=== PATIENT | female | born 1980 | race Caucasian/White ===

== ENCOUNTER 2023-01-15 18:50 | Emergency (ER) | payer BC, SELFPAY ==
[2023-01-15 19:15] VITALS: BP 107/67; PULSE 81; RESP 16; TEMP 36.7; O2SAT 97; BMI 30.5
--- NOTE | 2023-01-15 19:36 | ED.GENADULT ---
HPI - General Adult General Date Seen: 01/15/23 Chief complaint: Weakness Stated complaint: Sore throat fever Body Pain Urine Issues Time Seen by Provider: 01/15/23 19:09 Source: patient Mode of arrival: ambulatory Limitations: no limitations History of Present Illness HPI narrative: Patient is a 42-year-old here for evaluation of 3 days of fever, myalgias, fatigue. She also says that she is not urinating a lot at a time, is having some frequency. She does not have dysuria, no hematuria. She does feel that her urine smells bad. No abdominal or flank pain. No vomiting or diarrhea. Her daughter is sick with a febrile illness as well. They did not do a COVID test at home. She has not had significant cough, no chest pain or shortness of breath. She says she feels better today than she did the past couple of days but still wanted to get checked out. Related Data Home Medications Medication Instructions Recorded Confirmed No Known Home Medications 01/15/23 01/15/23 Allergies Allergy/AdvReac Type Severity Reaction Status Date / Time Latex, Natural Rubber Allergy Severe Anaphylaxis Verified 01/15/23 19:20 Review of Systems Status of ROS: Reports: 6 or more systems reviewed and unremarkable except as noted in History and below [facility] Medical History No significant past medical history Surgical History History of colposcopy ?Z98.890 - Other specified postprocedural states (ICD-10) Social History Smoking Status: Current every day smoker What tobacco products do you use: cigarettes Smoking packs per day: 0.5 Smoking cigarettes per day: 10.0 Years smoked: 25 Smoking pack-years: 12.50 Do you use any of these nicotine containing products: None Second hand tobacco smoke exposure: No How often do you have a drink containing alcohol: 2-3 times a week AUDIT-C Alcohol total score: 3 Non-prescribed substance use: denies use service: No Exam Narrative: Exam Narrative: Vital signs as noted above. In general, an alert, well-appearing patient. Head: Normocephalic, atraumatic. Eyes: Pupils are equal reactive. Extraocular movements are full. Conjunctivae are normal. ENT: Mucous membranes are moist. Throat is normal. Neck: Supple without lymphadenopathy. Heart: Regular rate and rhythm. No murmur or rub. Lungs: Clear bilaterally. No increased work of breathing, crackles or wheezes. Abdomen: Soft and nontender. No organomegaly. No CVA tenderness. Extremities: Well perfused. No edema. No calf tenderness. Pulses intact. Neurologic: Patient is alert and oriented to person and place. Speech is fluent. Face is symmetric. Moves all extremities equally. Affect: Normal. Skin: Warm and dry. Well perfused. Const: Vital Signs, click to edit/add: Vital Signs - 24 hr 01/15/23 19:15 01/15/23 20:23 01/15/23 20:28 Temperature 98.1 F 98.4 F 98.4 F Pulse Rate [Pulse Oximeter] 81 79 79 Respiratory Rate 16 16 16 Blood Pressure [Le ft Upper Arm] 107/67 110/74 110/74 Pulse Oximetry 97 97 Oxygen Delivery Me thod Room Air Room Air Documenting provider has reviewed patient's vital signs: yes Course Course Hospital Course: COVID, flu, RSV and strep test were obtained. Urinalysis also pending. Her daughter strep test was positive but hers is negative, viral testing is negative as well. Urinalysis is suggestive of UTI with positive nitrites, 10-25 red cells, 5-10 white cells. I think it is reasonable to treat her for this based on how she is feeling. I do not see anything clinically that is suggestive of pyelonephritis. Would recommend that she come back if she is feeling worse in any way, such as flank pain, abdominal pain, vomiting. Otherwise, urine cultures pending. Follow-up with primary care if not improving over the next couple of days. Vital Signs Vital signs: Initial Vital Signs Temperature 98.1 F 01/15/23 19:15 Temperature Source Temporal Artery Scan 01/15/23 19:15 Pulse Rate 81 01/15/23 19:15 Respiratory Rate 16 01/15/23 19:15 Blood Pressure 107/67 01/15/23 19:15 Blood Pressure Mean 80 01/15/23 19:15 Blood Pressure Position Supine 01/15/23 19:15 Pulse Oximetry 97 01/15/23 19:15 Oxygen Delivery Method Room Air 01/15/23 19:15 Vital Signs Temperature 98.1 F 01/15/23 19:15 Pulse Rate 81 01/15/23 19:15 Respiratory Rate 16 01/15/23 19:15 Blood Pressure 107/67 01/15/23 19:15 Pulse Oximetry 97 01/15/23 19:15 Oxygen Delivery Method Room Air 01/15/23 19:15 Temperature 98.4 F 01/15/23 20:28 Pulse Rate 79 01/15/23 20:28 Respiratory Rate 16 01/15/23 20:28 Blood Pressure 110/74 01/15/23 20:28 Pulse Oximetry 97 01/15/23 20:23 Oxygen Delivery Method Room Air 01/15/23 20:23 Medical Decision Making Lab Data Labs: Lab Results 01/15/23 01/15/23 Range/Units 19:22 19:34 Urine Color Yellow (Yellow) Urine Appearance Clear (Clear) Urine pH 5.5 (5.0-8.5) Ur Specific [employer] 1.020 (1.000-1.030) Urine Protein 1+ A (Negative) Urine Glucose (UA) Negative (Negative) Urine Ketones Negative (Negative) Urine Blood 1+ A (Negative) Urine Nitrite Positive A (Negative) Urine Bilirubin Negative (Negative) Urine Urobilinogen 1.0 (0.2-1.0) Ur Leukocyte Esterase 1+ A (Negative) Urine RBC 10-25 A (0-2) Urine WBC 5-10 A (0-5) Ur Squamous Epith Cells Many A (None-Few) Urine Bacteria Many A (None) SARS-CoV-2 (PCR) Negative SARS-CoV-2 (Negative) Influenza Type A (PCR) Negative PCR FLU A (Negative) Influenza Type B (PCR) Negative PCR FLU B (Negative) Group A Strep DNA NOT DETECTED (Not Detectd) Discharge Plan Discharge Clinical Impression: UTI (urinary tract infection) Patient Disposition: Home, Self-Care Condition: Stable Instructions: Urinary Tract Infection in Women (DC) Additional Instructions: Antibiotic as prescribed. Return for persistent fever, flank pain, vomiting, or other worsening. Urine culture is pending, we will call you if we need to change your antibiotic. Prescriptions: No Action No Known Home Medications Follow Up/Referrals: Provider,Not a Local [Primary Care Provider] - Stand Alone Forms: [employer] Info Instructions
[2023-01-15 19:41] LABS: Appearance Urine Clear (Clear); Bilirubin Urine Negative (Negative); Blood Urine 1+ (Negative); Color Urine Yellow (Yellow); Glucose Urine Negative (Negative); Ketones Urine Negative (Negative); Leukocyte Esterase Urine 1+ (Negative); Nitrite Urine Positive (Negative); Protein Urine 1+ (Negative); pH Urine 5.5 (5.0-8.5)
[2023-01-15 20:01] LABS: Strep A DNA Probe* NOT DETECTED (Not Detectd)
[2023-01-15 20:02] LABS: Bacteria Urine Many; Squamous Epithelial Cell Urine Many (None-Few)
[2023-01-15 20:13] LABS: PCR FLU A Negative PCR FLU A (Negative); PCR FLU B Negative PCR FLU B (Negative); SARS PCR* Negative SARS-CoV-2 (Negative)
[2023-01-15 20:23] VITALS: BP 110/74; PULSE 79; RESP 16; TEMP 36.9; O2SAT 97
[2023-01-15 20:28] VITALS: BP 110/74; PULSE 79; RESP 16; TEMP 36.9
== END 2023-01-15 20:28 | disposition home or self-care (01) ==
PROVIDERS: Emergency Provider Emergency Medicine
DX: N39.0 Urinary tract infection, site not specified (principal)
CPT/HCPCS: 81001; 87086; 87186; 87631; 87651; 99283; 99284